=== PATIENT | male | born 1975 | race Caucasian/White ===

== ENCOUNTER 2017-01-19 16:51 | Emergency (ER) | payer BC ==
[~2017-01-19] VITALS: Ht 177.8 cm; Wt 85.3 kg
[~2017-01-19 16:51] MED LIST: LRT5 PO
[2017-01-19 17:37] VITALS: TEMP 37.4; Ht 177.8 cm; Wt 85.3 kg
--- NOTE | 2017-01-19 18:26 | DIAGNOSTIC IMAGING REPORT ---
LEFT WRIST W/NAVICULAR MIN 3 VIEWS CLINICAL HISTORY: left wrist trauma. Pain. COMPARISON: None. DISCUSSION: The bones and joint spaces appear intact. There is no evidence of fracture, dislocation or bony disease. Mild soft tissue edema IMPRESSION: No acute bony abnormality. Electronically signed by: Flo Franco M.D. 01/19/2017 6:25 PM Dictated Date/Time: 01/19/2017 6:24 PM
--- NOTE | 2017-01-19 18:26 | DIAGNOSTIC IMAGING REPORT ---
RIGHT WRIST W/NAVICULAR MIN 3 VIEWS CLINICAL HISTORY: right wrist Right trauma. Pain. COMPARISON: None. DISCUSSION: The bones and joint spaces appear intact. There is no evidence of fracture, dislocation or bony disease. There is no evidence for soft tissue swelling. IMPRESSION: Negative study. Electronically signed by: Flo Franco M.D. 01/19/2017 6:25 PM Dictated Date/Time: 01/19/2017 6:25 PM
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
[2017-01-19 19:50] VITALS: BP 162/95; PULSE 83; O2SAT 96
[2017-05-21] MEDS ORDERED: LISI-461 PO (14:09)
== END 2017-01-19 19:51 | disposition home or self-care (01) ==
LOC: C.EDB 16:51 → C.EDD 19:51
DX: S69.92XA Unspecified injury of left wrist, hand and finger(s), initial encounter (principal); S63.501A Unspecified sprain of right wrist, initial encounter; V11.0XXA Pedal cycle driver injured in collision with other pedal cycle in nontraffic accident, initial encounter; Y93.55 Activity, bike riding; I10 Essential (primary) hypertension

== ENCOUNTER 2017-04-08 19:10 | Emergency (ER) | payer BC ==
[~2017-04-08] VITALS: Ht 180.3 cm; Wt 77.2 kg
[2017-04-08 19:18] VITALS: TEMP 36.5; Ht 180.3 cm; Wt 77.2 kg
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
[2017-04-08 20:48] VITALS: BP 132/84; PULSE 84; O2SAT 98
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
[2017-05-21] MEDS ORDERED: LISI-461 PO (14:09)
== END 2017-04-08 20:50 | disposition home or self-care (01) ==
LOC: C.EDB 19:11 → C.EDD 20:50
DX: S02.2XXA Fracture of nasal bones, initial encounter for closed fracture (principal); W21.03XA Struck by baseball, initial encounter; Y92.320 Baseball field as the place of occurrence of the external cause; I10 Essential (primary) hypertension